=== PATIENT | male | born 1970 | race Caucasian/White ===

== ENCOUNTER 2017-11-10 18:46 | Emergency (ER) | payer OTHER ==
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
--- NOTE | 2017-11-11 08:30 | CR ---
Abdomen 2V AP Flat Upright CLINICAL HISTORY: Flank pain FINDINGS: No free air is identified. Intestinal configuration is nonacute. No definite urinary stones are seen IMPRESSION: Nonacute intestinal gas pattern
--- NOTE | 2017-11-11 08:34 | CR ---
CHEST: 2 view CLINICAL HISTORY:Cough and congestion COMPARISON:None FINDINGS: Heart and pulmonary vascularity appear normal. There is a subcentimeter nodular focus in t he left the midlung field laterally. No infiltrates are seen. IMPRESSION: No infiltrates are seen Subcentimeter nodular focus in the left the mid lateral lung field. Noncontrast CT chest should be c onsidered
== END 2017-11-10 22:11 | disposition home or self-care (01) ==
LOC: JP.ED 18:46
DX: R10.9 Unspecified abdominal pain (principal); R53.81 Other malaise; R51 Headache; F17.210 Nicotine dependence, cigarettes, uncomplicated; Z88.0 Allergy status to penicillin
CPT/HCPCS: 36415; 71046; 71046-26; 74019; 74019-26; 80053; 81001; 83690; 85027; 99284

== ENCOUNTER 2024-11-15 15:50 | Emergency (ER) | payer MEDICAID, OTHER | END 2024-11-15 16:38 | disposition home or self-care (01) | LOC: JP.ED 15:50 | DX: S61.211A Laceration without foreign body of left index finger without damage to nail, initial encounter (principal); Z88.0 Allergy status to penicillin; W26.0XXA Contact with knife, initial encounter; Y93.89 Activity, other specified | CPT/HCPCS: 99282 ==